=== PATIENT | male | born 1950 | race Caucasian/White ===

== ENCOUNTER 2019-01-31 18:14 | Emergency (ER) | payer MEDICARE, MEDICAID ==
[~2019-01-31] VITALS: Ht 167.6 cm; Wt 90.7 kg
--- NOTE | 2019-01-31 20:40 | NUR ---
PT PRESENTED TO THE ER WITH A C/O LLE PAIN. PT DENIES TRAUMA. PT STATED THAT THE PAIN STARTED APPROX 2 HRS AGO AND WAS A SHOOTING PAIN DOWN THE LLE. PT AMBULATED FROM ROOM 18 CH1 TO ER 8 WITH A STEADY GAIT. PT IS ABLE TO MOVE HIS TOES AND FEELS PRESSURE. CAP REFILL NOTED <3 SECONDS. UNABLE TO NOTATE PEDAL PULSE.
--- NOTE | 2019-01-31 20:45 | NUR ---
PEDAL PULSE FOUND WITH THE DOPPLER BY STACIE CASTILLO/LINDSEY.
[2019-01-31 20:50] LABS: BASOPHILS % (AUTO) 0.6 % (0.0-2.0); EOSINOPHILS % (AUTO) 1.5 % (0.0-6.0); HEMATOCRIT 44 % (39-51); HEMOGLOBIN 15.1 g/dL (13.5-17.5); LYMPHOCYTES # (AUTO) 1.2 /CMM (0.8-4.8); LYMPHOCYTES % (AUTO) 19.9 % (20.0-44.0); MEAN CORPUSCULAR HGB CONC 34 g/dl (31.0-36.0); MEAN CORPUSCULAR VOLUME 98 fL (80-96); MONOCYTES # (AUTO) 0.6 /CMM (0.1-1.30); NEUTROPHILS # (AUTO) 4.3 /CMM (1.8-8.9); PLATELET COUNT (AUTO) 120 /CMM (150-450); RED BLOOD CELL COUNT(AUTO) 4.52 MIL/uL (4.5-6.0); WHITE BLOOD COUNT (AUTO) 6.2 K/uL (4.3-11.0)
--- NOTE | 2019-01-31 20:50 | NUR ---
DR JONES COULD NOT FIND A PEDAL PULSE.
[2019-01-31 20:57] LABS: CALCIUM, SERUM 8.8 mg/dL (8.5-10.1); CREATININE 0.9 mg/dL (0.6-1.3); POTASSIUM 4.2 mmol/L (3.5-5.1)
[2019-01-31] MEDS ORDERED: HEPARIN INFUSION/D5W 500 ML IV ONE (20:57)
[2019-01-31] MEDS ORDERED: IOHEXOL-350 100 ML VIAL IV ONE (21:00)
[2019-01-31] MEDS ORDERED: IV NS 0.9% 250 ML IV ONE (21:00)
[2019-01-31] MEDS ORDERED: HEPARIN INFUSION/D5W 500 ML IV PRN (21:00)
[2019-01-31] MEDS ORDERED: CT SWABBABLE VALVE TRANS SET 1 EA INFUS.SET MC ONE (21:00)
--- NOTE | 2019-01-31 21:00 | NUR ---
ADDENDUM: Intravenous End Time Documentation: Heparin Infusion (25,000/D5W 500 ml) start time: 2100 PM end time:0210 AM (02/01/2019); PIV # 18 ; RAC post # 1 Infusing while transfer to [facility]
--- NOTE | 2019-01-31 21:07 | NUR ---
PT LEFT FOR CTA VIA GURNEY.
--- NOTE | 2019-01-31 21:16 | NUR ---
PT RETURNED FROM CT.
[2019-01-31] MEDS ORDERED: HEPARIN SODIUM, PORCINE 5000 UNITS/1 ML VIAL ONE (21:36)
--- NOTE | 2019-01-31 21:40 | NUR ---
HEPARIN BOLUS AND DRIP STARTED BY STACIE CASTILLO/ELIZABETHG
[2019-01-31] MEDS ORDERED: HEPARIN SODIUM, PORCINE 5000 UNITS/1 ML VIAL IV ONE (22:00)
--- NOTE | 2019-01-31 22:10 | NUR ---
DR JONES IS AT THE BEDSIDE SPEAKING TO THE PT AND HIS RE: PLAN OF CARE.
--- NOTE | 2019-01-31 22:28 | NUR ---
JIMI AT [facility] WAS CALLED TO SET UP A TRANSFER. WILL FAX FACESINESSA, VASCULAR STUDY, AND CT Addendum: 01/31/19 at 2236 by LUIS FAX NUMBER [phone]
[2019-01-31] MEDS ORDERED: ALFU10TA10 PO (22:31)
[2019-01-31] MEDS ORDERED: SIMV40TA5 PO (22:31)
[2019-01-31] MEDS ORDERED: CLOP75TA15 PO (22:31)
--- NOTE | 2019-01-31 22:35 | NUR ---
CALLED [facility] TRANSFER LINE. SPOKE TO BARBRA AND WILL FAX FACESHEET. [phone]
--- NOTE | 2019-01-31 22:42 | NUR ---
SPOKE TO JIMI AT [facility], WAITING ON ADMITTING DR CANTU TO ACCEPT
[2019-01-31] MEDS ORDERED: CARV25TA2 PO (22:47)
--- NOTE | 2019-01-31 22:48 | NUR ---
PT'S BP IS ELEVATED 173/97. NOTIFIED. NEW ORDERS GIVEN.
[2019-01-31] MEDS ORDERED: CARVEDILOL 6.25 MG TABLET ONE (22:59)
[2019-01-31] MEDS ORDERED: CARVEDILOL 6.25 MG TABLET PO ONE (23:00)
--- NOTE | 2019-01-31 23:29 | NUR ---
PT ACCEPTED AT [facility] ER BY DR NICHOLAS. # FOR REPORT [phone]
--- NOTE | 2019-01-31 23:31 | NUR ---
[facility] CALLED FOR [facility]SP[facility]. ETA [id number] TRIP# [id number]
--- NOTE | 2019-01-31 23:46 | NUR ---
REPORT GIVEN TO STACIE BARRERA AT [facility].
--- NOTE | 2019-02-01 00:11 | NUR ---
PT APPEARS TO BE RESTING COMFORTABLY WITH NO S/S OF PAIN OR DISTRESS.
[2019-02-01 01:36] VITALS: BP 116/52
--- NOTE | 2019-02-01 01:37 | NUR ---
PT DESATURATED DOWN TO 91% ON RA WHILE RESTING. PT WAS PLACED ON 2L O2 VIA NC. PT'S O2 SAT IS NOW 98%.
--- NOTE | 2019-02-01 02:15 | NUR ---
REPORT GIVEN TO [facility] RN WITH [facility]NZ.
--- NOTE | 2019-02-01 02:17 | NUR ---
PT'S , LENO, CAN BE REACHED AT [phone]. CELL PHONE.
--- NOTE | 2019-02-01 02:18 | NUR ---
PT LEFT VIA [facility]
== END 2019-02-01 02:23 ==
LOC: ER 18:21
DX: T82.868A Thrombosis due to vascular prosthetic devices, implants and grafts, initial encounter (principal); M62.262 Nontraumatic ischemic infarction of muscle, left lower leg; I10 Essential (primary) hypertension; R33.9 Retention of urine, unspecified; Z85.828 Personal history of other malignant neoplasm of skin; Z98.890 Other specified postprocedural states
CPT/HCPCS: 36415; 75635; 80048; 85025; 85730; 87081; 93005; 96365; 96366; 96376; 99291; A4606; J1644 ×2; J7050; Q9967